=== PATIENT | male | born 1945 | race Caucasian/White ===

== ENCOUNTER 2020-02-16 18:38 | Emergency (ER) | payer MEDICARE, OTHER ==
[~2020-02-16] VITALS: Ht 185.4 cm; Wt 181.0 kg
[~2020-02-16 18:38] MED LIST: Z.0.AMARYL2 MG PO; Z.0.AMLODIPINE BESY1 PO; Z.0.HYZAAR 100-251 E; Z.0.KLOR-CON 88 MEQ PO; Z.0.LASIX40 MG PO; Z.0.TOPROL XL50 MG PO
--- OUTSIDE RECORDS SUMMARY | 2020-02-16 18:42 | XMS REPORT ---
Author Author [facility] t Organization [facility] Address [address] [place] [address] Dr. Santiago [address] [place] [id number] Phone Unavailable Care Team Providers Care Director [employer] Name Role Phone Renée WILKINS Attphys Unavailable Problems This patient has no known problems. Allergies, Adverse Reactions, Alerts This patient has no known allergies or adverse reactions. Medications This patient has no known medications. Procedures This patient has no known procedures. Results Test Description Test Time Test Comments Results Result Comments Source PELVIS AP 1-2 VIEWS [place] [address] Patient Name: YEHUDA SAGE MR #: [id number] : 1945 Age/Sex: 72/M Req #: [id number] Adm Physician: Ordered by: DEBORA WILKINS MD Report #: [id number] Location: ER Room/Bed: Procedure: [id number] DX/PELVIS AP 1-2 VIEWS Exam Date: 09/15/17 Exam Time: 0107 REPORT STATUS: Signed PELVIS AP 1-2 VIEWS Comparison: None Clinical history: Fall, pain Findings: Mild to moderate bilateral hip and mild SI joint degenerative changes. No acute fracture or dislocation. Impression: No acute bony abnormality Signed by: Dr Candace Montelongo MD on 09/15/2017 1:49 AM Dictated By: CANDACE MONTELONGO MD 8 Transcribed By: DU on 09/15/17148 COPY TO: DEBORA WILKINS MD CHEST SINGLE (NOT PORTABLE) [place] [address] Patient Name: YEHUDA SAGE MR #: [id number] : 1945 Age/Sex: 72/M Req #: [id number] Adm Physician: Ordered by: DEBORA WILKISN MD Report #: [id number] Location: ER Room/Bed: Procedure: [id number] DX/CHEST SINGLE (NOT PORTABLE) Exam Date: 09/15/17 Exam Time: 0107 REPORT STATUS: Signed CHEST SINGLE (NOT PORTABLE), 09/15/2017 12:35 AM Technique: CHEST SINGLE (NOT PORTABLE) Comparison: None available. Clinical history: Fall, pain Findings: Unremarkable portable appearance of the heart, mediastinum, lungs and pleural spaces. Mild enlargement of the cardiomediastinal silhouette likely accentuated by technique. Impression: 1. Lines/Tubes: None 2. No acute abnormality. Signed by: Dr Candace Montelongo MD on 09/15/2017 1:50 AM Dictated By: CANDACE MONTELONGO MD 9 Transcribed By: DU on 09/15/17149 COPY TO: DEBORA WILKINS MD CT CERVICAL SPINE WO [place] [address] Patient Name: YEHUDA SAGE MR #: [id number] : 1945 Age/Sex: 72/M Req #: [id number] [facility] Physician: Ordered by: DEBORA WILKINS MD Report #: [id number] Location: ER Room/Bed: Procedure: [id number] CT/CT CERVICAL SPINE WO Exam Date: 09/15/17 Exam Time: 0108 REPORT STATUS: Signed ADDENDUM #1 History: Fall Comparison studies: None Technique: Axial images were obtained through the cervical region.. Coronal and sagittal images reconstructed from the axial data.. Intravenous contrast: None Findings: Fractures: None. Soft tissues: No gross abnormalities. Atlantoaxial articulation: No acute abnormality. Alignment: Normal lordosis. No scoliosis. Cervicomedullary junction: No abnormalities. The foramen magnum is patent. Vertebrae: No infection or neoplasm. Degenerative changes: Patent canal and foramina. IMPRESSION: 1. No acute cervical spine abnormalities. 2. Cannot exclude ligament, spinal cord and or vascular abnormalities on the basis of this examination. Signed by: DR Josh Chicas M.D. on 09/15/2017 2: 55 AM ORIGINAL REPORT History: Fall, pain. Laceration above right eye. Comparison studies:None Technique: Axial images were obtained from the brain and face. Coronal and sagittal images reconstructed from the axial data. Intravenous contrast: None Findings: Head CT: Scalp/skull: Right supraorbital hematoma. No fractures, blastic or lytic lesions. Brain sulci: Appropriate for age. Ventricles: Normal in size and configuration. No hydrocephalus. Extra-axial spaces: No masses. No fluid collections. Parenchyma: No abnormal densities. No masses, hemorrhage, acute or chronic cortical vascular insults. Sellar/suprasellar region: No abnormalities. Craniocervical junction: Patent foramen magnum. No Chiari one malformation. Maxillofacial CT: Soft tissues: No abnormalities. Bones: No acute fractures or bone abnormalities.Nasal bones mild chronic deformity Orbits: Globes: Intact Extra or in traconal abnormalities: None. Paranasal sinuses: Clear Incidental findings: Degenerative changes of the partially visualized cervical spine. Impression: Head CT: 1. No acute intracranial abnormality 2. Left frontal scalp hematoma Maxillofacial CT: 1. Right supraorbital hematoma without acute facial fracture. Signed by: DR Josh Chicas M.D. on 09/15/2017 2:05 AM Dictated By: JOSH RODRIGUES MD 4 Transcribed By: DU on 09/15/17204 COPY TO: DEBORA WILKINS MD CT MAXIO FAC/PARANAS WO [place] [address] Patient Name: YEHUDA SAGE MR #: [id number] : 1945 Age/Sex: 72/M Req #: [id number] Adm Physician: Ordered by: DEBORA WILKINS MD Report #: [id number] Location: ER Room/Bed: Procedure: [id number] CT/CT MAXIO FAC/PARANKING WO Exam Date: 09/15/17 Exam Time: 0108 REPORT STATUS: Signed History: Fall, pain. Laceration above right eye. Comparison studies:None Technique: Axial images were obtained from the brain and face. Coronal and sagittal images reconstructed from the axial data. Intravenous contrast: None Findings: Head CT: Scalp/skull: Right supraorbital hematoma. No fractures, blastic or lytic lesions. Brain sulci: Appropriate for age. Ventricles: Normal in size and configuration. No hydrocephalus. Extra-axial spaces: No masses. No fluid collections. Parenchyma: No abnormal densities. No masses, hemorrhage, acute or chronic cortical vascular insults. Sellar/suprasellar region: No abnormalities. Craniocervical junction: Patent foramen magnum. No Chiari one malformation. Maxillofacial CT: Soft tissues: No abnormalities. Bones: No acute fractures or bone abnormalities.Nasal bones mild chronic deformity Orbits: Globes: Intact Extra or intraconal abnormalities: None. Paranasal sinuses: Clear Incidental findings: Degenerative changes of the partially visualized cervical spine. Cervical spine Findings: Fractures: None. Soft tissues: No gross abnormalities. Atlantoaxial articulation: No acute abnormality. Alignment: Normal lordosis. No scoliosis. Cervicomedullary junction: No abnormalities. The foramen magnum is patent. Vertebrae: No infection or neoplasm. Degenerative changes: Patent canal and foramina. Impression: Head CT: 1. No acute intracranial abnormality 2. Left frontal scalp hematoma Maxillofacial CT: 1. Right supraorbital hematoma without acute facial fracture. Cervical spine: 1. No acute cervical spine abnormalities. 2. Cannot exclude ligament, spinal cord and or vascular abnormalities on the basis of this examination Signed by: DR Josh Chicas M.D. on 09/15/2017 2:58 AM Dictated By: JOSH RODRIGUES MD 7 Transcribed By: DU on 09/15/17257 COPY TO: DEBORA WILKINS MD CT BRAIN [place] [address] Patient Name: YEHUDA SAGE MR #: [id number] : 1945 Age/Sex: 72/M Req #: [id number] Adm Physician: Ordered by: DEBORA WILKINS MD Report #: [id number] Location: Room/Bed: Procedure: [id number] CT/CT BRAIN WO Exam Date: 09/15/17 Exam Time: 0108 REPORT STATUS: Signed ADDENDUM #1 History: Fall Comparison studies: None Technique: Axial images were obtained through the cervical region.. Coronal and sagittal images reconstructed from the axial data.. Intravenous contrast: None Findings: Fractures: None. Soft tissues: No gross abnormalities. Atlantoaxial articulation: No acute abnormality. Alignment: Normal lordosis. No scoliosis. Cervicomedullary junction: No abnormalities. The foramen magnum is patent. Vertebrae: No infection or neoplasm. Degenerative changes: Patent canal and foramina. IMPRESSION: 1. No acute cervical spine abnormalities. 2. Cannot exclude ligament, spinal cord and or vascular abnormalities on the basis of this examination. Signed by: DR Josh Chicas M.D. on 09/15/2017 2:55 AM ORIGINAL REPORT History: Fall, pain. Laceration above right eye. Comparison studies:None Technique: Axial images were obtained from the brain and face. Coronal and sagittal images reconstructed from the axial data. Intravenous contrast: None Findings: Head CT: Scalp/skull: Right supraorbital hematoma. No fractures, blastic or lytic lesions. Brain sulci: Appropriate for age. Ventricles: Normal in size and configuration. No hydrocephalus. Extra-axial spaces: No masses. No fluid collections. Parenchyma: No abnormal densities. No masses, hemorrhage, acute or chronic cortical vascular insults. Sellar/suprasellar region: No abnormalities. Craniocervical junction: Patent foramen magnum. No Chiari one malformation. Maxillofacial CT: Soft tissues: No abnormalities. Bones: No acute fractures or bone abnormalities.Nasal bones mild chronic deformity Orbits: Globes: Intact Extra or intracona l abnormalities: None. Paranasal sinuses: Clear Incidental findings: Degenerative changes of the partially visualized cervical spine. Impression: Head CT: 1. No acute intracranial abnormality 2. Left frontal scalp hematoma Maxillofacial CT: 1. Right supraorbital hematoma without acute facial fracture. Signed by: DR Josh Chicas M.D. on 09/15/2017 2:05 AM Dictated By: JOSH RODRIGUES MD 4 Transcribed By: DU on 09/15/17204 COPY TO: DEBORA WILKINS MD
[2020-02-16] MEDS ORDERED: VANCOMYCIN 1GM/NS 250 ML 250 ML IV SCH (19:00)
[2020-02-16] MEDS ORDERED: PIPER-TAZ 3.375 GM 50 ML IV SCH (19:00)
[2020-02-16 19:26] LABS: BASOPHILS # (AUTO) 0.1 (0.0-0.1); BASOPHILS % 0.5 % (0.0-1.0); EOSINOPHILS % 0.1 % (0.0-6.0); HEMATOCRIT 48.4 % (38.2-49.6); HEMOGLOBIN 16.9 g/dL (14.0-18.0); LYMPHOCYTES # (AUTO) 0.6 (1.0-3.2); LYMPHOCYTES % 5.1 % (18.0-39.1); MEAN CORPUSCULAR HEMOGLOBIN 31.2 pg (28-32); MEAN CORPUSCULAR HGB CONC 34.9 g/dL (31-35); MEAN CORPUSCULAR VOLUME 89.3 fL (81-99); MONOCYTES # (AUTO) 0.4 (0.2-0.8); MONOCYTES % 3.9 % (4.4-11.3); NEUTROPHILS # (AUTO) 9.7 (2.1-6.9); NEUTROPHILS % 90.1 % (38.7-80.0); PLATELET COUNT 220 x10e3/uL (140-360); RED BLOOD COUNT 5.42 x10e6/uL (4.3-5.7); RED CELL DISTRIBUTION WIDTH 13.4 % (11.7-14.4)
[2020-02-16 19:43] LABS: ALBUMIN 3.7 g/dL (3.5-5.0); ANION GAP 16.2 mmol/L (8-16); CALCIUM 9.3 mg/dL (8.4-10.2); CREATININE, SERUM 1.26 mg/dL (0.72-1.25); POTASSIUM 4.2 mmol/L (3.5-5.1)
--- NOTE | 2020-02-16 20:15 | Emergency Department Note ---
History of Present Illnes History of Present Illness Chief Complaint: General Medicine Complaints History of Present Illness This is a 74 year old male who presents with c/o increased redness and swelling to rle, has h/o cellulitis in same leg in the past, states started about 4 days ago, pt is a diabetic . Historian: Patient, Family Member Arrival Mode: Car Onset (how long ago): day(s) (4) Location: right lower extremity Severity: moderate Onset quality: gradual Duration (how long): day(s) (4) Timing of current episode: constant Progression: worsening Relieving factors: none Exacerbating factors: none Associated symptoms: denies other symptoms Treatments prior to arrival: none Past Medical/Family History Physician Review I have reviewed the patient's past medical and family history. Any updates have been documented here. Past Medical History Recent Fever: No Clinical Suspicion of Infectio: No New/Unexplained Change in Ment: No Past Medical History: Hypertension, Diabetes Past Surgical History: Knee Replacement Other Surgery: PLASTICS (FACIAL SURGERY) - SKIN CANCER REMOVAL BILATERAL KNEE REPLACEMENT Social History Smoking Cessation: Never Smoker Alcohol Use: Daily Any Illegal Drug Use: No Family History Family history of heart diseas: No Other Last Tetanus: UNKNOWN Review of Systems Review of Systems Constitutional: no symptoms EENTM: no symptoms Cardiovascular: no symptoms Respiratory: no symptoms Gastrointestinal: no symptoms Genitourinary: no symptoms Musculoskeletal: as per HPI Neurological: no symptoms Psychological: no symptoms Endocrine: no symptoms Hematological/Lymphatic: no symptoms Review of other systems All other systems reviewed and negative. Physical Exam Related Data Allergies: Coded Allergies: No Known Drug Allergies (Verified Allergy, Unknown, 12/28/07) Triage Vital Signs Vital Signs Date Time Temp Pulse Resp B/P (MAP) Pulse Ox O2 Delivery O2 Flow Rate FiO2 02/16/20 18:46 98.8 88 20 128/65 95 Vital signs reviewed: Yes Physical Exam CONSTITUTIONAL Constitutional: well-developed, well-nourished HENT HENT: normocephalic, atraumatic, oropharynx clear/moist, nose normal HENT L/R: left ext ear normal, right ext ear normal EYES Eyes: PERRL, conjunctivae normal NECK Neck: ROM normal PULMONARY Pulmonary: effort normal, breath sounds normal CARDIOVASCULAR Cardiovascular: regular rhythm, heart sounds normal, capillary refill normal, normal rate GASTROINTESTINAL Abdominal: soft, nontender, bowel sounds normal GENITOURINARY Genitourinary: exam deferred SKIN Skin: warm, dry MUSCULOSKELETAL Musculoskeletal: edema (mild bilateral lower extremities), tenderness (mild r le), swelling (mild rle), other (erythema to rle) NEUROLOGICAL Neurological: alert, oriented x 3, no gross motor or sensory deficits PSYCHOLOGICAL Psychological: mood/affect normal, judgement normal Results Laboratory Result Diagram: 02/16/20190402/16/201904 Laboratory Laboratory Tests Test 02/16/20 19:05 White Blood Count 10.78 x10e3/uL (4.8-10.8) Red Blood Count 5.42 x10e6/uL (4.3-5.7) Hemoglobin 16.9 g/dL (14.0-18.0) Hematocrit 48.4 % (38.2-49.6) Mean Corpuscular Volume 89.3 fL (81-99) Mean Corpuscular Hemoglobin 31.2 pg (28-32) Mean Corpuscular Hemoglobin Concent 34.9 g/dL (31-35) Red Cell Distribution Width 13.4 % (11.7-14.4) Platelet Count 220 x10e3/uL (140-360) Neutrophils (%) (Auto) 90.1 % (38.7-80.0) Lymphocytes (%) (Auto) 5.1 % (18.0-39.1) Monocytes (%) (Auto) 3.9 % (4.4-11.3) Eosinophils (%) (Auto) 0.1 % (0.0-6.0) Basophils (%) (Auto) 0.5 % (0.0-1.0) Neutrophils # (Auto) 9.7 (2.1-6.9) Lymphocytes # (Auto) 0.6 (1.0-3.2) Monocytes # (Auto) 0.4 (0.2-0.8) Eosinophils # (Auto) 0.0 (0.0-0.4) Basophils # (Auto) 0.1 (0.0-0.1) Absolute Immature Granulocyte (auto 0.03 x10e3/uL (0-0.1) Sodium Level 134 mmol/L (136-145) Potassium Level 4.2 mmol/L (3.5-5.1) Chloride Level 99 mmol/L (98-107) Carbon Dioxide Level 23 mmol/L (22-29) Anion Gap 16.2 mmol/L (8-16) Blood Urea Nitrogen 19 mg/dL (7-26) Creatinine 1.26 mg/dL (0.72-1.25) Estimat Glomerular Filtration Rate 56 ML/MIN (60-) BUN/Creatinine Ratio 15 (6-25) Glucose Level 116 mg/dL (74-118) Calcium Level 9.3 mg/dL (8.4-10.2) Total Bilirubin 2.6 mg/dL (0.2-1.2) Aspartate Amino Transf (AST/SGOT) 34 IU/L (5-34) Alanine Aminotransferase (ALT/SGPT) 34 IU/L (0-55) Alkaline Phosphatase 64 IU/L (40-150) Total Protein 7.4 g/dL (6.5-8.1) Albumin 3.7 g/dL (3.5-5.0) Globulin 3.7 g/dL (2.3-3.5) Albumin/Globulin Ratio 1.0 (0.8-2.0) Lab results reviewed: Yes Critical Care Time Subsequent provider I assumed direction of critical care for this patient from another provider of my specialty. Assessment & Plan Assessment & Plan Problems: (1) Cellulitis of right lower extremity Assessment & Plan pt with redness, swelling and pain to e, h/o cellulitis to same in past. pt is also a diabetic cbc, cmp, blood cultures ordered zosyn 3,375 grams iv ordered vancomycin 1 gram iv ordered there are no beds available at this facility, pt will require transfer to another hospital for further care and continuation of iv antibiotics, pt r equesting to be transferred to [facility]. i spoke with dr wellington at [facility] and he agrees to accept pr for transfer. Depart Disposition: TRANS TO OTHER [facility] ([facility]) Last Vital Signs Date Time Temp Pulse Resp B/P (MAP) Pulse Ox O2 Delivery O2 Flow Rate FiO2 02/16/20 18:46 98.8 88 20 128/65 95 Home Meds Reported Medications Metoprolol Succinate (Toprol Xl) 50 Mg Tab.sr.24h, 50 MG PO QD 05/30/11 Amlodipine Besylate (Amlodipine Besylate) 10 Mg Tablet, 10 MG PO QD 05/30/11 Furosemide (Lasix) 40 Mg Tablet, 40 MG PO QD 05/30/11 Potassium Chloride (Klor-Con 8) 8 Meq Tablet.sa, 8 MEQ PO QD 05/30/11 Glimepiride (Amaryl) 2 Mg Tablet, 2 MG PO QD 05/30/11 Losartan/Hydrochlorothiazide (Hyzaar 100-25 Tablet) 1 Each Tablet, QD 05/30/11 Medications in the ED Piperacillin Sod/ Tazobactam Sod 50 ml @ 50 mls/hr Q8H IV Last administered on 02/16/20at 19:56; Admin Dose 50 MLS/HR; Start 02/16/20 at 19:00; Stop 02/23/20 at 18:59 Vancomycin HCl 250 ml @ 200 mls/hr Q12H IV ; Start 02/16/20 at 19:00; Stop 02/23/20 at 18:59 [place] CHRISTIANSON MD February 16, 2020 20:15
--- NOTE | 2020-02-16 20:39 | NUR ---
TRANSFER INITIATED AT THIS TIME TO [facility]. SPOKE WITH YANG POLO RN AOS. WAITING FOR CALL BACK FOR ROOM ASSIGNMENT.
--- NOTE | 2020-02-16 20:43 | NUR ---
DR. CHRISTIANSON SPOKE WITH DR. HOLLINS FOR PT ACCEPTANCE. DR. HOLLINS ACCEPTED THE PT.
[2020-02-16] MEDS ORDERED: SODIUM CHLORIDE 0.9% 1000ML 1,000 ML IV ONE (20:45)
[2020-02-16 21:35] LABS: BAND NEUTROPHILS % (MANUAL) 4 %; LYMPHOCYTES % (MANUAL) 9 % (19-48); MONOCYTES % (MANUAL) 5 % (3.4-9.0); NEUTROPHILS % (MANUAL) 82 % (40-74)
[2020-02-16 21:36] LABS: PLATELET ESTIMATE ADEQUATE; PLATELET MORPHOLOGY COMMENT NORMAL; RBC MORPHOLOGY COMMENT NORMAL
--- NOTE | 2020-02-16 21:36 | NUR ---
REPORT CALLED TO CHRISTINE SCHUSTER AT THIS TIME.
== END 2020-02-17 00:25 | disposition other institution (70) ==
LOC: ER 18:38
DX: L03.115 Cellulitis of right lower limb (principal); M79.661 Pain in right lower leg; E11.9 Type 2 diabetes mellitus without complications; I10 Essential (primary) hypertension; Z85.828 Personal history of other malignant neoplasm of skin; Z96.653 Presence of artificial knee joint, bilateral
CPT/HCPCS: 36415; 80053; 85025; 87040; 87071; 87205; 99284; J2543; J3370; J7030